=== PATIENT | male | born 1985 | race Hispanic/Latino ===

== ENCOUNTER 2019-06-15 05:50 | Day surgery (SDC) | payer OTHER ==
[~2019-06-15] VITALS: Ht 179.1 cm; Wt 145.1 kg
[~2019-06-15 05:50] MED LIST: SODIUM CHLORIDE 0.9% 1000ML 1,000 ML IV ONE
[2019-06-15 07:00] VITALS: BP 125/80
[2019-06-15] MEDS ORDERED: PROPOFOL 1000 MG/100 ML 100 ML IV ONE (08:39)
[2019-06-15] MEDS ORDERED: PROPOFOL 10 MG/ML 20ML VIAL IV ONE (08:39)
[2019-06-15 09:07] VITALS: BP 142/84
[2019-06-15 09:12] VITALS: BP 146/92
[2019-06-15 09:19] VITALS: BP 142/88
[2019-06-15 09:22] VITALS: BP 156/86
[2019-06-15 09:27] VITALS: BP 157/88
== END 2019-06-15 09:45 | disposition home or self-care (01) ==
LOC: ENDO 05:50 → DAH 05:50 → ENDO 09:45
PROVIDERS: ATTEND Internal Medicine
DX: K63.5 Polyp of colon (principal); K29.50 Unspecified chronic gastritis without bleeding; B96.81 Helicobacter pylori [H. pylori] as the cause of diseases classified elsewhere; K20.9 Esophagitis, unspecified; D72.820 Lymphocytosis (symptomatic); K57.30 Diverticulosis of large intestine without perforation or abscess without bleeding; K64.0 First degree hemorrhoids; K22.8 Other specified diseases of esophagus; E66.01 Morbid (severe) obesity due to excess calories; Z68.44 Body mass index [BMI] 60.0-69.9, adult; Z80.0 Family history of malignant neoplasm of digestive organs; F41.9 Anxiety disorder, unspecified
CPT/HCPCS: 43239; 45380; 88305; A4606; J2704 ×2; J7030